=== PATIENT | male | born 1925 | race African-American/Black ===

== ENCOUNTER → 2016-09-16 | Outpatient (CLI) | payer MEDICARE ==
[~2016-09-16] MED LIST: CEPH500C2 PO; CYAN10009 PO; FERR324T4 PO; MULT-806 PO; RIVA20TA PO
--- NOTE | 2016-09-16 21:23 | WOUNDPNF ---
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 HISTORY OF PRESENT ILLNESS Mr. Elizalde is an 89-year-old -[place] man with a history of chronic wound on the right lateral ankle since approximately February 2016. He also had a right lower extremity DVT and his right lower extremity has remained larger than the left. He has a history of right ankle fracture treated with open reduction internal fixation in approximately 2012. I believe that the lateral hardware has been removed. A wound culture from March 17, 2016 had multiple organisms including Providencia, E-coli, Morganella, coagulase-negative staph, Prevotella and a gram-positive hilary. Dr. Tinajero evaluated him on May 19 and felt that he could probe to bone suggesting mild osteomyelitis. I saw him initially May 20 and discussed IV antibiotics with the patient. However, he was not interested in pursuing that option. He had an MRI repeated May 27 which did not show evidence of osteomyelitis or abscess. He had another wound culture collected May 20 that grew methicillin-resistant Staph aureus, Morganella morganii and Enterococcus faecalis which was sensitive to ampicillin. The Morganella was sensitive to cefepime, ceftazidime, ceftriaxone, ertapenem, fluoroquinolones and Bactrim. I started him on cephalexin 500 mg p.o. t.i.d. and ciprofloxacin 500 mg b.i.d. in mid-May. He has also been evaluated by Dr. Springer who did not feel that there was any obvious sign of infection or indication for surgery. On July 29 he had completed two months of oral cephalexin and ciprofloxacin. His wound had been gradually decreasing in size and at that visit I discontinued the Cipro and continued him only on cephalexin. I saw him again August 26 at which point his wound was continuing to improve. Today he comes in for followup and the wound continues to improve. PAST MEDICAL HISTORY, PAST SURGICAL HISTORY, SOCIAL HISTORY, FAMILY HISTORY Reviewed. ALLERGIES No known drug allergies. CURRENT MEDICATIONS He is on cephalexin 500 mg p.o. t.i.d. REVIEW OF SYSTEMS He denies any fevers, chills, sweats. He denies any nausea, vomiting or diarrhea. Appetite is good. He states that he tries to elevate his leg but his who accompanies him states that he is not elevating it enough. PHYSICAL EXAM VITAL SIGNS: Temperature 97.3, blood pressure 152/83, pulse 73, respirations 12. GENERAL: He is an elderly man who appears comfortable and is in no acute distress. HEENT: Pupils equal, round, reactive to light. Extraocular movements intact. Oropharynx is clear. NECK: Supple. HEART: Regular rate and rhythm. No murmurs noted. LUNGS: Clear to auscultation bilaterally anteriorly. ABDOMEN: Soft, nontender. He has bowel sounds present. No guarding or rebound. EXTREMITIES: The right lower extremity remains slightly larger than the left and he has about 2+ pitting edema of the right lower extremity around the foot and ankle. His wound today has a scab covering it and I can't see that there is any significant tunneling beneath the scab. The wound appears to be closed. The skin around this wound appears without warmth or redness. There is no fluctuance. SKIN: No rashes. Neuro: Exam is grossly nonfocal. LABORATORY Laboratory from September 14 shows a white count of 2.7, hemoglobin 12.9, platelets 137,000. Creatinine 0.9. His CRP was 9.2 and normal goes from 0 to 9. Previously, the CRP was 25. His sed rate was down to 48 and previously this had been 95. IMPRESSION 1. 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 2. Peripheral vascular disease. 3. Chronic venous insufficiency. 4. Right lower extremity DVT, on Xarelto. 5. Chronic peripheral edema of the right lower extremity. 6. Right ankle fracture treated with open reduction internal fixation in 2011 with subsequent removal of lateral hardware. 7. Status post right total knee arthroplasty. 8. History of hospitalization March 2016 for sepsis with no clear etiology determined although he was treated for urinary tract infection. RECOMMENDATIONS His wound appears healed although he does have a scab at the base of the wound. His inflammatory markers have improved significantly. I would recommend that he finish out the cephalexin that he has at home and then discontinue this. I will have him follow up with Dr. Tinajero to see if the scab needs any further debridement. However, at this point I do not feel that he needs to follow up with me unless further problems arise. Thank you for allowing me to participate in the care of this patient. BANDAR
== END ==
LOC: NWCC 10:28
PROVIDERS: ATTEND Internal Medicine Infectious Disease
DX: L97.312 Non-pressure chronic ulcer of right ankle with fat layer exposed (principal); B96.89 Other specified bacterial agents as the cause of diseases classified elsewhere; I73.9 Peripheral vascular disease, unspecified; I87.2 Venous insufficiency (chronic) (peripheral); I82.501 Chronic embolism and thrombosis of unspecified deep veins of right lower extremity; Z79.01 Long term (current) use of anticoagulants; R60.0 Localized edema; Z87.898 Personal history of other specified conditions

== ENCOUNTER → 2016-09-29 | Outpatient (CLI) | payer MEDICARE | LOC: NWCC 10:21 | PROVIDERS: ATTEND Surgery | DX: L97.312 Non-pressure chronic ulcer of right ankle with fat layer exposed (principal); B96.89 Other specified bacterial agents as the cause of diseases classified elsewhere; B96.20 Unspecified Escherichia coli [E. coli] as the cause of diseases classified elsewhere; I87.2 Venous insufficiency (chronic) (peripheral); I50.9 Heart failure, unspecified ==

== ENCOUNTER → 2016-10-27 | Outpatient (CLI) | payer MEDICARE | LOC: NWCC 10:21 | PROVIDERS: ATTEND Surgery | DX: L97.312 Non-pressure chronic ulcer of right ankle with fat layer exposed (principal); B96.89 Other specified bacterial agents as the cause of diseases classified elsewhere ==